=== PATIENT | female | born 1955 | race Caucasian/White ===

== ENCOUNTER 2016-02-27 15:00 | Emergency (ER) | payer BC, OTHER ==
[2016-02-27 15:26] VITALS: BP 130/82; PULSE 83; RESP 14; TEMP 98.6; O2SAT 96
--- NOTE | 2016-02-27 15:46 | UCPHY ---
H & P Time Seen by Provider: 02/27/16 15:26 Patient Type: New HPI/ROS: This patient has a 10 day history of illness comprised of nasal congestion, facial pressure and cough. She initially had associated fevers to 101 night sweats, headache and myalgias and was diagnosed with influenza clinically by her primary care physician a few days into her symptoms. However now another 7 days later-10 days total she still has persistent frequent dry cough this prevented sleep and she has developed right frontal sinus pressure the concerns for potential sinusitis. She has associated fatigue. ROS: No recent high fevers or chills. Constitutional symptoms as per HPI. Otherwise negative. HEENT: No ear pain. No sore throat. Pulmonary: No pleuritic pain or respiratory distress. Cardiovascular: No lightheadedness. No chest pain. GI: No vomiting or diarrhea. 7 point ROS is otherwise negative. Past Medical/Surgical History: Otherwise healthy with history of migraines Smoking Status: Never smoked Physical Exam: General Appearance: Alert, no distress. Eyes: Pupils equal and round no pallor or injection. ENT, Mouth: Mucous membranes moist. Nose: Swollen nasal mucosa bilaterally. She has sinus tenderness to percussion of the right frontal sinus. Ears: Clear bilaterally. Respiratory: Dry intermittent cough with no rales or rhonchi. Cardiovascular: Regular rate and rhythm. No JVD. No peripheral edema. Neurological: Alert with no focal deficits. Skin: Warm and dry, no rashes. Musculoskeletal: Neck is supple nontender. Extremities are symmetrical, full range of motion. Psychiatric: Mood and affect are normal DIFFERENTIAL DIAGNOSIS: After history and physical exam differential diagnosis was considered for bronchitis, sinusitis, doubt pneumonia Constitutional: Initial Vital Signs Temperature (C) 37 C 02/27/16 15:23 Heart Rate 83 02/27/16 15:23 Respiratory Rate 14 02/27/16 15:23 Blood Pressure 130/82 H 02/27/16 15:23 O2 Sat (%) 96 02/27/16 15:23 O2 Delivery Mode Room Air Allergies/Adverse Reactions: No Known Allergies Allergy (Verified 02/27/16 15:22) Home Medications: Medication Instructions Recorded Calcium Carbonate/Vitamin D3 1 each PO 12/24/10 [Calcium 1,000 + D3 Caplet] Ciprofloxacin [Cipro 500 mg] 500 mg PO BID #14 tab 12/24/10 Ondansetron Odt [Zofran Odt] 4 mg SL Q4PRN PRN #4 tab 12/24/10 PRISTIQ 12/24/10 Azithromycin [Zithromax] 250 mg PO DAILY #6 tab 02/27/16 Fluticasone Hfa 220 Mcg [Flovent 2 puffs IH DAILY #1 mdi 02/27/16 220 MCG Hfa MDI (*)] Guaifenesin/Codeine Phosphate 5 - 10 ml PO Q6 PRN #120 ml 02/27/16 [Guaifenesin-Codeine Liquid] MDM/Departure - Depart Clinical Impression: Cough Sinusitis Qualifiers: Sinusitis location: frontal Chronicity: acute Recurrence: non-recurrent Qualifier Code: (J01.10) Acute frontal sinusitis, unspecified Condition: Good Instructions: Sinusitis (ED) Additional Instructions: Diagnoses: 1. Frontal sinusitis 2. Cough Plan: Humidifier Continue your [id number]-vcjuwah medications including the ProAir Add Flovent steroid inhaler Zithromax antibiotic Guaifenesin with codeine for cough prevents sleep. Return for any significant worsening despite the treatment plan Prescriptions: Fluticasone Hfa 220 Mcg [Flovent 220 MCG Hfa MDI (*)] 2 puffs IH DAILY #1 mdi Guaifenesin/Codeine Phosphate [Guaifenesin-Codeine Liquid] 5 - 10 ml PO Q6 PRN # 120 ml PRN Reason: Cough Azithromycin [Zithromax] 250 mg PO DAILY #6 tab Referrals: Liza Buckley MD [Primary Care Provider] - As per Instructions - PQRS PQRS Measurement: NA
== END 2016-02-27 15:51 | disposition home or self-care (01) ==
LOC: CED 15:00
DX: J01.10 Acute frontal sinusitis, unspecified (principal)
CPT/HCPCS: G0463-PO